=== PATIENT | female | born 1970 ===

== ENCOUNTER 2022-12-09 12:26 | Outpatient (CLI) | payer OTHER, SELFPAY ==
--- NOTE | ~2022-12-09 | DEXA_ITS ---
Bone Density Report Name: ESTEPHANIA CONTRERAS Age: 52 Sex: Female Ethnicity: White Date of : 1970 Indication: screening for osteoporosis; prior fracture; Referring Provider: Dieudonne, Tahir Study: Bone densitometry was performed. Exam Date: December 09, 2022 Accession number: [id number] Bone Density: Region BMD T-score Z-score Classification AP Spine(L1-L4) 0.795 -2.3 -1.5 Osteopenia Femoral Neck (Left) 0.645 -1.8 -1.1 Osteopenia Total Hip (Left) 0.679 -2.2 -1.7 Osteopenia Femoral Neck (Right) 0.628 -2.0 -1.2 Osteopenia Total Hip (Right) 0.689 -2.1 -1.6 Osteopenia Femoral Neck Mean 0.636 -1.9 -1.1 Osteopenia Total Hip Mean 0.684 -2.1 -1.6 Osteopenia World Health Organization criteria for BMD impression classify patients as: Normal (T-score at or above -1.0), Osteopenia (T-score between -1.0 and -2.5), or Osteoporosis (T-score at or below -2.5). 10-year Fracture Risk: FRAX not reported because: Premenopausal woman Clinical Information Provided by Patient: Has had a low trauma fracture Smokes Patient maximum height was 63 No regular weight bearing exercise Does not regularly consume dairy products Drinks caffeinated beverages Onset of menses at age 14 Premenopausal Number of children 3 Impression: The patient's bone mass is within expected range for age, gender and ethnicity. The patient has risk factors, including: smoking, previous fracture. Discussion: BONE DENSITY IS WITHIN EXPECTED LIMITS FOR AGE, SEX AND RACE. Bone density is within expected limits for age, sex and race at all sites measured. The patient should follow a healthful lifestyle (good nutrition with adequate calcium and vitamin D, and appropriate weight-bearing exercise). Follow-Up: Consider repeating this study in 2 to 3 years to reassess this patient's status, or sooner if there is some new clinical indication. Reported by: Dr. Tien Walker on 12/09/2022 12:54:00 PM. Reviewed, dictated and finalized at location [facility]
== END 2022-12-09 12:27 | disposition home or self-care (01) ==
LOC: CHSIMG 12:29
PROVIDERS: PCP Family Medicine; Visit Provider Family Medicine
DX: M85.89 Other specified disorders of bone density and structure, multiple sites (principal)
CPT/HCPCS: 77080

== ENCOUNTER → 2023-01-06 10:18 | Outpatient (CLI) | payer OTHER, SELFPAY ==
--- NOTE | ~2023-01-06 | MR_ITS ---
MRI of the left foot CLINICAL HISTORY: Painful lateral mid foot TECHNIQUE: Sagittal T1-weighted and STIR images, axial proton-density and proton-density fat-sat imag es, and coronal T1-weighted and proton-density fat-sat images were performed. FINDINGS: There is suggestion of minimal amorphous marrow edema in the second and third metatarsal sh afts. There is moderate degenerative change of the first metatarsophalangeal joint, with diffuse bernard dromalacia and small joint effusion present. Remaining joint spaces are preserved. Flexor and extensor tendons are intact. There is mild nonspecific soft tissue edema surrounding the s haft of the second metatarsal. No soft tissue mass or fluid collection evident. Intrinsic musculature appears unremarkable. Plantar fascia is intact. IMPRESSION: Findings suggestive of mild stress response/stress marrow edema, or bone contusion, involving the sec ond, and to a lesser extent, the third, metatarsals. No stress fracture evident at this time. Moderate degenerative change of the first MTP joint. Reviewed, dictated and finalized at location . IMPRESSION: Findings suggestive of mild stress response/stress marrow edema, or bone contus ion, involving the second, and to a lesser extent, the third, metatarsals. No s tress fracture evident at this time. Moderate degenerative change of the first MTP joint.
== END ==
PROVIDERS: PCP Podiatrist Foot & Ankle Surgery; Visit Provider Podiatrist Foot & Ankle Surgery
DX: M25.572 Pain in left ankle and joints of left foot (principal)
CPT/HCPCS: 73718